=== PATIENT | male | born 1970 | race Caucasian/White ===

== ENCOUNTER → 2017-12-29 | Outpatient (CLI) | payer MEDICARE ==
[2014-11-20 13:32] VITALS: BP 157/105
[~2017-12-29] MED LIST: IOHEXOL 240 MG/ML 50ML VIAL. ONE; IOHEXOL 300 MG/ML 75 ML VIAL. IV ONE
--- NOTE | 2017-12-29 13:24 | RAD ---
CT ABD PELV W/ORAL IV CONTRAST Indication: EPIGASTRIC ANDOMINAL PAIN, HX OF LAP-BAND AND HERNIA REPAIR, OMNI 300 75 mL CONTRAST Exposure: One or more of the following individualized dose reduction techniques were utilized for this examination: 1. Automated exposure control 2. Adjustment of the mA and/or kV according to patient size 3. Use of iterative reconstruction technique. Comparison: None are available. Contrast: Intravenous contrast was given. Oral contrast was given. FINDINGS: Lower thorax: Lung bases are clear. Liver: Unremarkable Spleen: Unremarkable Pancreas: Unremarkable Adrenals: No evidence of mass. Kidneys: No obvious mass. Urinary tracts: No hydronephrosis. Gallbladder: No calcified stone Lymph nodes: No significant enlargement Vessels: * Aorta: Nonaneurysmal * Major aortic branches: Grossly patent. * Portal venous: Patent GI tract: Percutaneous laparoscopic band identified at the stomach. Small hiatal hernia. No bowel obstruction. No evidence of acute colitis. Appendix is normal. Reproductive organs:No evidence of mass. Urinary bladder: Unremarkable. Peritoneum: There is a percutaneous gastrostomy tube Abdominal wall:Unremarkable Spine: Mild degenerative spondylosis. There is some ossification in the right paraspinal musculature appears chronic. Muscle atrophy is identified. Bones: No destructive process identified. IMPRESSION: No acute findings in the abdomen or pelvis. Percutaneous laparoscopic band identified at the stomach. Small hiatal hernia. Electronically signed by: Shiraz Gallagher MD (12/29/2017 1:20 PM) [facility]
== END | disposition home or self-care (01) ==
LOC: CT 10:08
PROVIDERS: ATTEND Family Medicine
DX: K44.9 Diaphragmatic hernia without obstruction or gangrene (principal); M47.896 Other spondylosis, lumbar region; M62.58 Muscle wasting and atrophy, not elsewhere classified, other site; I10 Essential (primary) hypertension
CPT/HCPCS: 74177; Q9966; Q9967

== ENCOUNTER 2020-09-26 23:39 | Emergency (ER) | payer MEDICARE ==
[~2020-09-26] VITALS: Ht 160 cm; Wt 120.0 kg
[2020-09-27] MEDS ORDERED: MORPHINE SULFATE 4 MG/ML DISP.SYRIN. ONE (00:01)
[2020-09-27] MEDS ORDERED: ONDANSETRON PF 4 MG/2 ML VIAL. ONE (00:01)
[2020-09-27] MEDS ORDERED: MORPHINE SULFATE 2 MG/ML DISP.SYRIN. ONE (00:01)
--- NOTE | 2020-09-27 00:02 | PHYS DOC ---
Past History Past Medical History: No Pertinent History Past Surgical History: No Surgical History Smoking: Non-smoker Alcohol Use: Occasionally Drug Use: None Adult General Chief Complaint Chief Complaint: ABDOMINAL PAIN HPI HPI Patient is a 49-year-old male with a past medical history significant for gastric bypass and hernia and hernia repair who presents with a chief complaint of right upper quadrant/epigastric pain which started about 3 hours before coming into the emergency department, sharp in nature, 8 out of 10 with no radiation associated with mild nausea but no vomiting. States has been making urine and stool normally for him with no blood in either. States he is been eating and drinking normally up until earlier today. Denies any recent traumas, travels, illnesses, fevers, chest pain, shortness of breath, dysuria, hematuria, blood in the stool or diarrhea. Denies any alcohol or drug use. Review of Systems Review of Systems Review of systems otherwise unremarkable except noted in HPI Allergies Allergies Allergies Coded Allergies Type Severity Reaction Last Updated Verified No Known Drug Allergies 09/26/20 No Physical Exam Physical Exam Constitutional: Well developed, well nourished, no acute distress, non-toxic appearance. [] HENT: Normocephalic, atraumatic, bilateral external ears normal, oropharynx moist, no oral exudates, nose normal. [] Eyes: conjunctiva normal, no discharge. [] Neck: Normal range of motion, no tenderness, supple, no stridor. [] Cardiovascular:Heart rate regular rhythm, no murmur [] Lungs & Thorax: Bilateral breath sounds clear to auscultation [] Abdomen: Bowel sounds normal, abdomen soft right upper quadrant and epigastrium, no rebound or guarding. Skin: Warm, dry, no erythema, no rash. [] Back: no CVA tenderness. [] Extremities: No tenderness, no cyanosis, no clubbing, ROM intact, no edema. [] Neurologic: Alert and oriented X 3, no focal deficits noted. [] Psychologic: Affect normal, judgement normal, mood normal. [] EKG EKG [] Radiology/Procedures Radiology/Procedures [] Heart Score C/O Chest Pain: No Risk Factors: Risk Factors: DM, Current or recent (<one month) smoker, HTN, HLP, family history of CAD, obesity. Risk Scores: Risk Factors: DM, Current or recent (<one month) smoker, HTN, HLP, family history of CAD, obesity. Course & Med Decision Making Course & Med Decision Making Patient is a 49-year-old male who presents with a chief complaint of epigastric pain for 2 to 3 hours Vital signs notable for hypertension. Physical exam noted above. Patient placed on the monitor with IV access established and IV fluid given. Made n.p.o. Given morphine for pain and Zofran for nausea. Laboratory analysis notable for leukocytosis. Notable for gallbladder wall thickening and hyperemia. Ultrasound notable for abnormally distended gallbladder, wall thickening and gallbladder sludge. Given patient's continued pain after fluid resuscitation and multiple doses of morphine, findings on labs and imaging, suspicious for nonstone related cholecystitis. Discussed all findings with patient and recommended admission and transfer to [facility] for continued evaluation including possible HIDA scan and/or cholecystectomy. 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 Patient grateful, verbalized und erstanding agreed with plan of transfer and admission. Dragon Disclaimer Dragon Disclaimer This electronic medical record was generated, in whole or in part, using a voice recognition dictation system. Departure Departure: Impression: Primary Impression: Right upper quadrant pain Additional Impressions: Epigastric pain Abnormal gallbladder ultrasound Abnormal CT scan, gallbladder Disposition: 02 [facility]ORT TERM [facility] Condition: IMPROVED Referrals: PCP,NO (PCP) Problem Qualifiers GRACIE MATOS MD Sep 27, 2020 00:02
[2020-09-27] MEDS: MORPHINE SULFATE 2 MG/ML DISP.SYRIN. IV ONE ×2 (00:03→00:44)
[2020-09-27] MEDS: ONDANSETRON PF 4 MG/2 ML VIAL. IVP ONE (00:05)
[2020-09-27] MEDS: MORPHINE SULFATE 4 MG/ML DISP.SYRIN. IV ONE ×4 (00:05→04:43)
[2020-09-27 00:06] LABS: BASO # 0.1 x10^3/uL (0.0-0.2); BASO % 0 % (0-3); EOS # 0.1 x10^3/uL (0.0-0.7); EOS % 1 % (0-3); HEMOGLOBIN 15.2 g/dL (13.0-17.5); LYMPH # 4.9 x10^3/uL (1.0-4.8); LYMPH % 31 % (24-48); MEAN CORPUSCULAR HEMOGLOBIN 29 pg (25-35); MEAN CORPUSCULAR HGB CONC 33 g/dL (31-37); MEAN CORPUSCULAR VOLUME 87 fL (79-100); MONO # 1.2 x10^3/uL (0.0-1.1); MONO % 8 % (0-9); NEUT # 9.3 x10^3uL (1.8-7.7); NEUT % 60 % (31-73); PLATELET COUNT 315 x10^3/uL (140-400); RED BLOOD COUNT 5.29 x10^6/uL (4.30-5.70); RED CELL DISTRIBUTION WIDTH 14.4 % (11.5-14.5); WHITE BLOOD COUNT 15.5 x10^3/uL (4.0-11.0)
[2020-09-27 00:14] LABS: CALCIUM 8.4 mg/dL (8.5-10.1); CREATININE 1.3 mg/dL (0.7-1.3); GFR 58.4
[2020-09-27 00:20] LABS: ALBUMIN 3.6 g/dL (3.4-5.0); ALBUMIN/GLOBULIN RATIO 0.9 (1.0-1.7); TOTAL BILIRUBIN 0.4 mg/dL (0.2-1.0); TOTAL PROTEIN 7.5 g/dL (6.4-8.2)
--- NOTE | 2020-09-27 00:21 | RAD ---
XR CHEST 1V INDICATION: cardiac workup . COMPARISON STUDY: None. FINDINGS: Lungs: Normal lung volume. No pulmonary mass or consolidation. The tracheobronchial tree and hilar st ructures are normal. Pleura: No pleural effusion or pneumothorax. Heart and Mediastinum: The cardiomediastinal silhouette is normal. The great vessels of the thorax ar e normal. IMPRESSION: No focal airspace disease. Electronically signed by: Avelino Machado MD (09/27/2020 12:18 AM) [facility]
[2020-09-27 00:26] LABS: % BANDS 1 % (0-9); % EOS 1 % (0-5); % LYMPHS 29 % (24-48); % MONOS 7 % (0-10); % SEGS 62 % (35-66); PLT ESTIMATE ADEQUATE (ADEQUATE)
[2020-09-27] MEDS ORDERED: CONTRAST GIVEN. MC PRN (00:45)
[2020-09-27] MEDS: IOHEXOL 300 MG/ML 75 ML VIAL. IV ONE (00:55)
--- NOTE | 2020-09-27 01:26 | EKG ---
[address] [address] Test Date: 2020-09-26 Test Time: 23:40:09 Pat Name: TANIYA NAVARRO Department: Room: Gender: M Turn Down Attendant: : 1970 Requested By: GRACIE MATOS Order Number: [id number] Reading MD: Measurements Intervals Reading Rate: 72 P: -24 SC: 166 QRS: 96 QRSD: 104 T: 11 QT: 374 QTc: 411 Interpretive Statements SINUS RHYTHM RIGHTWARD AXIS OTHERWISE NORMAL ECG RI6.02 No previous ECG available for comparison
--- NOTE | 2020-09-27 01:41 | RAD ---
CT ABDOMEN+PELVIS W History: Epigastric PAIN.HX GASTRIC LAP BAND Comparison: None. Technique: After administration of intravenous contrast, helical CT of the abdomen and pelvis was per formed from the lung bases through the ischial tuberosities. Coronal and sagittal reconstructions wer e obtained. 75 mL of Omnipaque 300 were used. One or more of the following dose reduction techniques were utilized: Automated exposure control (AEC), Adjustment of mA and/or kV according to patient size , Use of iterative reconstruction technique such as ASiR, CT scan done according to ALARA and image g ently/image wisely Abdomen Findings: The visualized lung bases are clear. The liver, pancreas, spleen, and bilateral adrenal glands are normal. Mild gallbladder wall thickenin g and hyperemia. Symmetric renal enhancement. There is no focal renal mass. There is no hydronephrosis. Gastric lap band in place. The visualized loops of small bowel are normal. The visualized loops of la rge bowel are normal. There is no evidence of bowel obstruction. Appendix is normal. There is no free fluid. There is no mesenteric or retroperitoneal adenopathy. The abdominal aorta is normal in caliber. Mild aortoiliac atherosclerotic disease. Pelvis Findings: Urinary bladder is normal. No pelvic free fluid. There is no pelvic or inguinal adenopathy. There is no acute bony abnormality. IMPRESSION: Mild gallbladder wall thickening and hyperemia. Correlate with the laboratory values and if there is concern for acute cholecystitis right upper quadrant ultrasound could be obtained. Electronically signed by: Avelino Machado MD (09/27/2020 1:38 AM) [facility]
[2020-09-27] MEDS: IV RINGERS SOLUTION,LACTATED 1,000 ML IV ONE (04:30)
--- NOTE | 2020-09-27 04:35 | RAD ---
EXAM: ULTRASOUND ABDOMEN LIMITED CLINICAL HISTORY: RUQ / Epigastric pain COMPARISON: None available. TECHNIQUE: Limited ultrasound examination of the right upper quadrant of the abdomen was performed. FINDINGS: Pancreas is poorly visualized. Liver: 15.2 cm in length. The hepatic margin is smooth and the hepatic echogenicity is normal. The re are no focal liver lesions. Flow seen within the portal veins. Biliary: Distended gallbladder with sludge and wall thickening. There is no pain with direct transdu cer pressure over the gallbladder. Common bile duct measures 0.2 cm. Right Kidney: 10.3 cm in bipolar length. Normal renal cortical echotexture and thickness. No focal re nal lesion, shadowing renal calculus or hydronephrosis. Visualized portions of the abdominal aorta and inferior vena cava are unremarkable. There is no free fluid in the subhepatic space. IMPRESSION: Distended gallbladder with sludge and wall thickening, which could represent acute cholecystitis. Electronically signed by: Avelino Machado MD (09/27/2020 4:32 AM) [facility]
[2020-09-27] MEDS ORDERED: IV NORMAL SALINE 50ML 50 ML ONE (04:38)
[2020-09-27] MEDS ORDERED: cefTRIAXone SODIUM 1 GM VIAL ONE (04:38)
[2020-09-27 05:33] VITALS: BP 161/100
== END 2020-09-27 05:35 | disposition short-term general hospital (02) ==
LOC: ER 23:39
DX: R94.8 Abnormal results of function studies of other organs and systems (principal); Z90.49 Acquired absence of other specified parts of digestive tract
CPT/HCPCS: 36415; 71045; 74177; 76705; 80053; 83605; 83690; 84484; 85007; 85025; 93005; 96365; 96375; 96376; 99285; J0696; J2270; J2405; J3490; J7120; Q9967